=== PATIENT | female | born 1975 | race Caucasian/White ===

== ENCOUNTER 2017-11-01 15:25 | Inpatient (IN) | payer OTHER, MEDICAID ==
[~2017-11-01] VITALS: Ht 162.6 cm; Wt 64.4 kg
[~2017-11-01 15:25] MED LIST: AMOXICILLIN 50500 MG PO; AUGMENTIN 875875 MG PO; CEFTIN 250 MG250 MG PO; CIPRO250 M1 PO; CIPRO250 MG PO; CIPROFLOXACIN500 M1 PO; COMPAZINE10 MG PO; DILAUDID 2 MG TA2 MG PO; DILAUDID 4 MG TA4 M1 PO; DILAUDID2 M1 PO; DOXYCYCLINE 10100 MG PO; HYDROCODONE-AP1 EAC6 PO; KEFLEX500 MG PO; KLOR-CON 1010 MEQ PO; LASIX 20 MG TAB20 MG PO; LEVAQUIN 500 M500 M2 PO; LEVAQUIN 750 M750 MG PO; LISINOPRIL20 MG PO; MACROBID 100 M100 M1 PO; MUCINEX TA600 MG/TA2 PO; NOHOMEMEDICATIONS; ONDANSETRON HCL4 M2 PO; OXYCODONE HCL 55 MG PO; OXYCODONE HCL5 MG PO; OXYCODONE-ACET1 EACH PO; OXYCONTIN10 M1 PO; PENICILLIN V P500 MG PO; PERCOCET 10-321 EACH PO; PERCOCET 5-3251 EACH PO; PERCOCET PO; PHENERGAN 25 MG25 M1 PO; PHENERGAN 25 MG25 MG PO; POTASSIUM20 PO; PREDNISONE 10 M10 MG PO; PROAIR HFA8.5 GM INH; PYRIDIUM200 MG PO; REMERON15 MG PO; SINGULAIR 10 MG10 M1 PO; TRANSDERM-SCO1 PATC1 TD; TYLENOL325 MG PO; ZOFRAN ODT4 M1 PO; ZOFRAN ODT4 MG PO; ZOFRAN4 MG PO
[2017-11-01 15:52] VITALS: BP 127/82
[2017-11-01] MEDS ORDERED: ZYVOX600 MG/300 IV (15:58)
[2017-11-01] MEDS ORDERED: XARELTO20 MG PO (15:58)
[2017-11-01] MEDS ORDERED: PROBIOTIC1 EAC1 PO (15:59)
[2017-11-01] MEDS ORDERED: MYCAMINE100 MG IV (16:00)
[2017-11-01] MEDS ORDERED: DILAUDID 2 MG TA2 MG PO (16:01)
[2017-11-01] MEDS ORDERED: VANCOMYCIN HCL125 MG PO (16:01)
[2017-11-01] MEDS ORDERED: ONDANSETRON HCL4 M2 PO (16:01)
[2017-11-01 17:35] LABS: ABSOLUTE LYMPHOCYTES 1.3 thou/uL (0.8-5.3); ABSOLUTE MONOCYTES 0.4 thou/uL (0.0-1.2); ABSOLUTE NEUTROPHILS 3.5 thou/uL (1.6-8.1); BASOPHILS 0.7 %; EOSINOPHILS 0.8 %; HEMATOCRIT 27.3 % (37.0-47.0); HEMOGLOBIN 8.7 gm/dL (12.0-15.0); MCH 26.1 pg (26.0-34.0); MCHC 31.9 g/dL (28.0-37.0); MCV 81.8 fL (80.0-100.0); MONOCYTES 7.8 %; MPV 6.5 fl. (7.2-11.1); NUCLEATED RBCS 0 /100WBC; PLATELET COUNT* 234 thou/uL (150-400); POLYS 65.7 %; RBC 3.34 mil/uL (4.20-5.00); RDW-CV 30.6 % (10.5-14.5); WBC 5.3 thou/uL (4.0-11.0)
[2017-11-01 17:44] LABS: ANION GAP 5 mmol/L (7-16); BUN 18 mg/dL (7-18); CALCIUM 8.7 mg/dL (8.5-10.1); CHLORIDE 104 mmol/L (98-107); CO2 28 mmol/L (21-32); CREATININE 0.7 mg/dL (0.6-1.3); GLUCOSE 103 mg/dL (70-99); POTASSIUM 3.7 mmol/L (3.5-5.1); SODIUM 137 mmol/L (136-145)
[2017-11-01 17:44] LABS: URINE BILIRUBIN NEGATIVE (Negative); URINE BLOOD 1+ (Negative); URINE CLARITY CLEAR; URINE COLOR YELLOW; URINE GLUCOSE-RANDOM NEGATIVE (Negative); URINE KETONES NEGATIVE (Negative); URINE LEUKOCYTES NEGATIVE (Negative); URINE NITRITE NEGATIVE (Negative); URINE PROTEIN TRACE (Negative); URINE SPECIFIC GRAVITY 1.015 (1.005-1.030); URINE UROBILINOGEN 0.2 E.U./dl (0.2-1.0)
[2017-11-01 17:51] LABS: ALBUMIN 3.5 g/dL (3.4-5.0); ALKALINE PHOSPHATASE 68 U/L (46-116); LIPASE 75 U/L (73-393); SGOT 17 U/L (15-37); SGPT 17 U/L (30-65); TOTAL BILIRUBIN 0.3 mg/dL (<0.1-1.0); TOTAL PROTEIN 7.8 g/dL (6.4-8.2); TROPONIN-I LEVEL <0.06 ng/mL (<0.06)
[2017-11-01 18:02] LABS: INR 1.3; PROTIME 12.8 Seconds (9.20-11.50)
[2017-11-01 18:08] LABS: BACTERIA 1-9 Few /HPF (None Seen); CASTS None Seen /LPF (None Seen); CRYSTALS None Seen /LPF (None Seen); SQUAMOUS 0-3 Few /LPF (0-3); URINE RBC 3-10 Few /HPF (0-2); URINE WBC 0-5 Rare /HPF (0-5)
[2017-11-01 18:16] LABS: APTT 35.9 Seconds (25.0-31.3)
--- NOTE | 2017-11-01 18:20 | NUR ---
CT ABD/PEL W COMPLEATED PT RETURNED TO ED
[2017-11-01 18:25] LABS: ANISOCYTOSIS 3+; HYPOCHROMASIA 1+; TEARDROPS 1+
[2017-11-01 18:26] LABS: MACROCYTES 2+; MICROCYTES 1+; TARGET CELLS 1+
[2017-11-01 18:27] LABS: POIKILOCYTOSIS 1+
[2017-11-01 18:28] LABS: SCHISTOCYTES Occasional
[2017-11-01 18:29] LABS: PLATELET ESTIMATE ADEQUATE; POLYCHROMASIA Occasional
[2017-11-01 21:10] VITALS: BP 115/51
[2017-11-01 21:18] VITALS: BP 116/77
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
[2017-11-02 04:00] VITALS: BP 92/50
[2017-11-02 05:26] LABS: HEMOGLOBIN 7.9 gm/dL (12.0-15.0); MCH 26.5 pg (26.0-34.0); MCHC 31.7 g/dL (28.0-37.0); MCV 83.8 fL (80.0-100.0); MPV 6.2 fl. (7.2-11.1); RBC 2.99 mil/uL (4.20-5.00); RDW-CV 30.8 % (10.5-14.5); WBC 4.6 thou/uL (4.0-11.0)
[2017-11-02 05:36] LABS: CREATININE 0.7 mg/dL (0.6-1.3); POTASSIUM 3.8 mmol/L (3.5-5.1)
[2017-11-02 08:00] VITALS: BP 130/61
--- NOTE | 2017-11-02 10:38 | NUR ---
PER DR MCKEON ORDERS-CALL PT PHARMACY TO GET DILAUDID STRENGTH AND DATE OF LAST REFILL. [facility] CALLED AND LAST REFILL WAS PLACED ON 01/22/17 OF DILAUDID 4MG- 1 TAB EVERY 8 HOURS PRN SEVERE PAIN, 28 TABS. ADDITIONAL CHECK COMPLETED BY PHARMACY AND NOTED THAT PT HAD DILAUDID SCRIPT FILLED AT [facility] ON 10/29/17- 4MG- 2 TABS QID- 20 TABS TOTAL.
--- NOTE | 2017-11-02 11:16 | NUR ---
ASSUMED CARE OF PT AT 0730. PT SITTING IN BED. PT A&0X4. PT COMPLAINS OF 9/10 ABDOMINAL AND BACK PAIN. REQUESTING PAIN MEDICATION. PT EDUCATED THAT SHE IS NOT ABLE TO HAVE PAIN MEDICATION UNTIL 0830. PT NPO FOR GI CONSULT. PT IN CONTACT ISOLATION FOR VRE AND PENDING CDIFF. PT MEDICAL SURGICAL STATUS. ON RA SAT 98%. DENIES ANY SHORTNESS OF BREATH. PT HAVING BLOODY STOOLS. STATES SHE HAD 3 OVER NIGHT AND 1 THIS MORNING SO FAR. PT UP AD KIRA IN ROOM. PT GOAL FOR TODAY IS TO MONITOR HGB, PAIN MGMT AND GI CONSULT. AM ASSESSMENT CHARTED. MEDICATIONS PER NOV. PT REPOSITIONS SELF. HOURLY ROUNDING OBSERVED. BED IN LOW POSITION. CALL LIGHT WITHIN REACH. WILL CONTINUE PLAN OF CARE.
--- NOTE | 2017-11-02 13:54 | NUR ---
MET WITH PT TO DISCUSS HOME SITUATION/DC PLANNING. PT LIVES [place] HER MOTHER AND DTR [place]. SHE STATES SHE IS INDEPENDENT AND ACTIVE, USES NO EQUIPMENT. NOT HAD HH BEFORE. PT DENIES HAVING A PCP AND STATES DOESN'T WANT ASSIST FINDING ONE. PER OLD RECORD, WAS TO F/U WITH DR CAN, WHEN QUESTIONED, SHE STATED THAT THE ' WASN'T TAKING NEW PTS.' PT DENIES ANY DC NEEDS. UP IN ROOM, INDEPENDENT. WILL FOLLOW
[2017-11-02 14:49] LABS: HEMATOCRIT 26.2 % (37.0-47.0); HEMOGLOBIN 8.3 gm/dL (12.0-15.0)
--- NOTE | 2017-11-02 15:52 | EKG ---
[place] [address] ELECTROCARDIOGRAM REPORT Name: ZACHARY DUMONT Room: [place] [address] ADM IN .R.#: [id number] Admission: 11/01/17 Attend Phys: Humaira Ball MD Discharge: Date of : 75 Report #: [id number] THIS REPORT FOR: //name// [facility] ED Test Date: 2017-11-01 Test Time: 17:11:35 Pat Name: ZACHARYHER DUMONT Department: Room: [facility] Gender: F Guest Experience Representative: Efren HUDSON : 1975 Requested By: Becky Del Valle Order Number: [id number] : Faraz Ramirez Measurements Intervals [place] Rate: 92 P: 61 [place]: 186 QRS: 43 QRSD: 81 T: 67 QT: 364 QTc: 451 Interpretive Statements Sinus rhythm Compared to ECG 11/01/2016 15:03:29 Sinus tachycardia no longer present Electronically Signed On 11-02-2017 15:52:03 ACID CONDITIONER by Faraz Ramirez [email or web address] <ELECTRONICALLY SIGNED> By: Faraz Ramirez MD, [facility] 11/02/17 1552 171 10 Faraz Ramirez MD, FAC /EPI
[2017-11-02 16:00] VITALS: BP 11/79
--- NOTE | 2017-11-02 17:20 | NUR ---
NO ACUTE CHANGES THROUGHOUT SHIFT. REFER TO CHARTING. PT COMPLAINED OF PAIN TO ABDOMEN AND LOWER BACK. TREATED WITH PRN DILAUDID Q6H PRN WITH PARTIAL RELIEF. IVF DISCONTINUED. HGB CHECK AT 1400 BACK AT 8.3. GI HERE TO SEE PT AND DISMISSED PT FROM PRACTICE IN 2016 AND STATED IF PT NEEDS GI INTERVENTION- WILL NEED TRANSFER. PT DIET RESTARTED AND PT TOLERATING WELL. PT STATES SHE HAS HAD A COUPLE LOOSE BLOODY STOOLS THIS AFTERNOON. HGB STABLE. PT CONTINUES TO BE MED SURG STATUS. ON RA SAT UPPER 90'S. DENIES ANY SHORTNESS OF BREATH. PT CHECKED FOR POCKETING MEDS WHEN ADMINISTERING PAIN MEDICATIONS. IN CONTACT ISOLATION FOR VRE AND TO RULE OUT CDIFF. PT UP AD KIRA IN ROOM. PT AMBULATES IN HALLWAY. MEDICATIONS PER NOV. PT REPOSITIONS SELF. HOURLY ROUNDING OBSERVED. BED IN LOW POSITION. CALL LIGHT WITHIN REACH. WILL CONTINUE PLAN OF CARE.
[2017-11-02 20:37] VITALS: BP 122/78
[2017-11-02 23:26] LABS: HEMOGLOBIN 8.3 gm/dL (12.0-15.0)
[2017-11-02 23:57] VITALS: BP 111/73
--- NOTE | 2017-11-03 06:57 | NUR ---
Pt states she takes Hydromorphone q4h prn at home rather than q6h. States she will inquire about adjusting frequency with physician today. Informed patient that dosing and frequency had been double-checked with her pharmacy yesterday and the prescription was written for q6h prn. Otherwise no complaints. VSS. States no GI physician saw her yesterday (per consult order). Will continue to monitor.
[2017-11-03 08:00] VITALS: BP 121/67
[2017-11-03 11:35] VITALS: BP 127/83
[2017-11-03 15:58] VITALS: BP 132/88
--- NOTE | 2017-11-03 17:35 | NUR ---
ASSUMED CARE OF JORGE AT THIS TIME. PATIENT SETTLED TO ROOM. PATIENT DENIES ANY NEEDS. CALL LIGHT WITHIN REACH. WILL CONTINUE TO MONITOR.
[2017-11-03 17:40] VITALS: BP 118/78
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
[2017-11-04] VITALS: BP 112/69
[2017-11-04 05:14] LABS: HEMATOCRIT 31.3 % (37.0-47.0); HEMOGLOBIN 9.6 gm/dL (12.0-15.0)
[2017-11-04 07:55] VITALS: BP 119/82
[2017-11-04 10:06] VITALS: BP 112/69
--- NOTE | 2017-11-04 10:30 | NUR ---
PATIENT DISCONNECTED IV LINE AFTER SPEAKING WITH DR MCKEON ABOUT DISCHARGE. PATIENT WALKING HALLS AWAITING DISCHARGE PAPERS. ZYVOX WAS NOT COMPLETED.
--- NOTE | 2017-11-04 11:10 | NUR ---
PATIENT DISCHARGED TO HOME. DISCHARGE PAPERS REVIEWED AND SIGNED. NO NEW PRESCRIPTIONS. PATIENT TO CONTINUE PREVIOUSLY ORDERED MEDICATIONS AND FOLLOW-UP WITH DR MAGUIRE. PATIENT STATES SHE HAS ALL NEEDED SUPPLIES AND TRAINING FOR IV ANTIBIOTICS. PATIENT HAS TICC LINE IN PLACE. CM DENIES NEED TO SET UP HOME HEALTH IT IS ALREADY SET UP AT HOME. PATIENT DENIES ANY FURTHER NEEDS. PATIENT TAKEN AMBULATORY TO ER WAITING ROOM. DAUGHTER TRANSPORTING HOME.
--- NOTE | 2017-11-04 11:14 | NUR ---
Pt to dc home today. No needs expressed by pt according to pt nurse. SW was also informed by pt nurse that pt said she has all of her meds and that pt did not want HH arranged...previous CM notes that pt does not have history of HH services. SW to fax results of cultures to [facility] ID Dr. Weathers in 3 to 4 days.
--- NOTE | 2017-11-06 20:16 | EKG ---
[place] [address] ELECTROCARDIOGRAM REPORT Name: ZACHARY DUMONT Room: [address]#: [id number] Admission: 11/01/17 Attend Phys: Humaira Ball MD Discharge: 11/04/17 Date of : 75 Report #: [id number] THIS REPORT FOR: //name// [facility] ED Test Date: 2017-11-06 Test Time: 04:47:03 Pat Name: ZACHARY DUMONT Department: Room: Gender: Analyst: JUNE Schwartz : 1975 Requested By: Zoey Taylor Order Number: [id number] MD: Avery Richards Measurements Intervals [place] Rate: 105 P: 71 [place]: 165 QRS: 72 QRSD: 82 T: 68 QT: 354 QTc: 468 Interpretive Statements Sinus tachycardia Compared to ECG 11/01/2017 17:11:35 Sinus rhythm no longer present Electronically Signed On 11-06-2017 20:15:51 BUTT SAWYER by Avery Richards [email or web address] <ELECTRONICALLY SIGNED> By: Avery Richards MD, [facility] 11/06/172014 [facility]7 0447 Avery Richards MD, FACC /EPI
== END 2017-11-04 11:10 | disposition home or self-care (01) | DRG 314 ==
LOC: M.ERS 15:25 → M.2W 19:43 → M.TBA-ER 19:43 → M.3W 19:43 → M.2W 21:10 → M.3W 11-03 17:25
PROVIDERS: Internal Medicine; Nurse Practitioner Family; ADMIT Internal Medicine
PROC: 02HV33Z Insertion of Infusion Device into Superior Vena Cava, Percutaneous Approach (ICD-10-PCS; principal; 2017-11-01)
DX: T80.218A Other infection due to central venous catheter, initial encounter (principal); K75.0 Abscess of liver; A41.50 Gram-negative sepsis, unspecified; D62 Acute posthemorrhagic anemia; K92.2 Gastrointestinal hemorrhage, unspecified; F11.20 Opioid dependence, uncomplicated; K64.9 Unspecified hemorrhoids; F17.210 Nicotine dependence, cigarettes, uncomplicated; K64.8 Other hemorrhoids; Y83.8 Other surgical procedures as the cause of abnormal reaction of the patient, or of later complication, without mention of misadventure at the time of the procedure; Z98.1 Arthrodesis status; Z90.49 Acquired absence of other specified parts of digestive tract; Z90.710 Acquired absence of both cervix and uterus; Z86.711 Personal history of pulmonary embolism; Z88.6 Allergy status to analgesic agent; Z88.1 Allergy status to other antibiotic agents; Z88.5 Allergy status to narcotic agent; Z88.8 Allergy status to other drugs, medicaments and biological substances; Z79.01 Long term (current) use of anticoagulants; Z86.718 Personal history of other venous thrombosis and embolism; Z82.49 Family history of ischemic heart disease and other diseases of the circulatory system; Z83.3 Family history of diabetes mellitus; Y92.89 Other specified places as the place of occurrence of the external cause

== ENCOUNTER 2017-11-06 04:30 | Emergency (ER) | payer OTHER, MEDICAID ==
[~2017-11-06] VITALS: Ht 162.6 cm; Wt 61.2 kg
[~2017-11-06 04:30] MED LIST changes: +MYCAMINE100 MG IV; +PROBIOTIC1 EAC1 PO; +VANCOMYCIN HCL125 MG PO; +XARELTO20 MG PO; +ZYVOX600 MG/300 IV
[2017-11-06] MEDS ORDERED: MAXIPIME 1 GM/D51 G1 (04:45)
[2017-11-06 05:36] LABS: ABSOLUTE EOSINOPHILS 0.1 thou/uL (0.0-0.7); ABSOLUTE LYMPHOCYTES 1.2 thou/uL (0.8-5.3); ABSOLUTE MONOCYTES 0.4 thou/uL (0.0-1.2); BASOPHILS 0.4 %; EOSINOPHILS 0.9 %; HEMOGLOBIN 9.3 gm/dL (12.0-15.0); LYMPHOCYTES 18.3 %; MCH 26.8 pg (26.0-34.0); MCHC 32.2 g/dL (28.0-37.0); MCV 83.3 fL (80.0-100.0); MONOCYTES 5.5 %; MPV 6.7 fl. (7.2-11.1); NUCLEATED RBCS 0 /100WBC; PLATELET COUNT* 359 thou/uL (150-400); POLYS 74.9 %; RBC 3.48 mil/uL (4.20-5.00); RDW-CV 30.9 % (10.5-14.5); WBC 6.6 thou/uL (4.0-11.0)
[2017-11-06 05:45] LABS: CALCIUM 8.8 mg/dL (8.5-10.1); CREATININE 0.6 mg/dL (0.6-1.3); POTASSIUM 3.6 mmol/L (3.5-5.1)
[2017-11-06 05:47] VITALS: BP 102/58
[2017-11-06 07:46] LABS: PLATELET ESTIMATE ADEQUATE
[2017-11-06 07:47] LABS: ANISOCYTOSIS 1+; HYPOCHROMASIA 1+; OVALOCYTES 1+; POIKILOCYTOSIS 1+; TEARDROPS Occasional
== END 2017-11-06 05:52 | disposition home or self-care (01) ==
LOC: M.ERS 04:30
PROVIDERS: Emergency Medicine
DX: R10.30 Lower abdominal pain, unspecified (principal); Z76.5 Malingerer [conscious simulation]; M79.7 Fibromyalgia; F17.210 Nicotine dependence, cigarettes, uncomplicated; Z87.442 Personal history of urinary calculi; Z90.49 Acquired absence of other specified parts of digestive tract; Z90.710 Acquired absence of both cervix and uterus; Z86.711 Personal history of pulmonary embolism; Z88.8 Allergy status to other drugs, medicaments and biological substances; Z88.1 Allergy status to other antibiotic agents; Z88.5 Allergy status to narcotic agent; Z88.6 Allergy status to analgesic agent

== ENCOUNTER 2018-04-06 08:10 | Emergency (ER) | payer OTHER, MEDICAID ==
[~2018-04-06] VITALS: Ht 162.6 cm; Wt 67.1 kg
[~2018-04-06 08:10] MED LIST changes: +MAXIPIME 1 GM/D51 G1
[2018-04-06 08:52] LABS: ABSOLUTE LYMPHOCYTES 1.9 thou/uL (0.8-5.3); ABSOLUTE MONOCYTES 0.4 thou/uL (0.0-1.2); ABSOLUTE NEUTROPHILS 3.9 thou/uL (1.6-8.1); BASOPHILS 0.4 %; EOSINOPHILS 0.6 %; HEMATOCRIT 41.9 % (37.0-47.0); HEMOGLOBIN 13.3 gm/dL (12.0-15.0); LYMPHOCYTES 30.3 %; MCH 25.1 pg (26.0-34.0); MCHC 31.7 g/dL (28.0-37.0); MCV 79.2 fL (80.0-100.0); MONOCYTES 5.9 %; MPV 7.2 fl. (7.2-11.1); NUCLEATED RBCS 0 /100WBC; PLATELET COUNT* 395 thou/uL (150-400); POLYS 62.8 %; RBC 5.29 mil/uL (4.20-5.00); RDW-CV 25.7 % (10.5-14.5); WBC 6.1 thou/uL (4.0-11.0)
[2018-04-06 09:07] LABS: CALCIUM 9.3 mg/dL (8.5-10.1); CREATININE 0.6 mg/dL (0.6-1.3); POTASSIUM 4.1 mmol/L (3.5-5.1)
[2018-04-06 09:11] LABS: ALBUMIN 3.8 g/dL (3.4-5.0); TOTAL BILIRUBIN 0.3 mg/dL (<0.1-1.0); TOTAL PROTEIN 8.4 g/dL (6.4-8.2)
[2018-04-06 09:33] LABS: ANISOCYTOSIS 2+; HYPOCHROMASIA 2+; PLATELET ESTIMATE ADEQUATE
[2018-04-06 09:34] LABS: POLYCHROMASIA 1+
[2018-04-06 10:46] VITALS: BP 124/71
--- NOTE | 2018-04-06 17:55 | EKG ---
[place] [address] ELECTROCARDIOGRAM REPORT Name: ZACHARY DUMONT Room: [facility]#: [id number] Admission: 04/06/18 Attend Phys: Discharge: 04/06/18 Date of : 75 Report #: [id number] THIS REPORT FOR: //name// [facility] ED Test Date: 2018-04-06 Test Time: 08:43:42 Pat Name: ZACHARYHER DUMONT Department: Room: Gender: F Machine Clothing Worker: Efren SHIPLEY : 1975 Requested By: Jaden Yang Order Number: [id number] MD: Avery Richards Measurements Intervals [place] Rate: 82 P: 56 SC: 159 QRS: 51 QRSD: 82 T: 62 QT: 390 QTc: 456 Interpretive Statements Sinus rhythm Compared to ECG 11/06/2017 04:47:03 Sinus tachycardia no longer present Electronically Signed On 04-06-2018 17:54:42 CDT by Avery Richards [email or web address] <ELECTRONICALLY SIGNED> By: Avery Richards MD, [facility] 04/06/18 1754 0843 2 Avery Richards MD, FACC /EPI
== END 2018-04-06 10:48 | disposition home or self-care (01) ==
LOC: M.ERS 08:10
PROVIDERS: Family Medicine
DX: R10.84 Generalized abdominal pain (principal); R11.2 Nausea with vomiting, unspecified; Z76.5 Malingerer [conscious simulation]; M79.7 Fibromyalgia; F17.210 Nicotine dependence, cigarettes, uncomplicated; Z88.6 Allergy status to analgesic agent; Z88.1 Allergy status to other antibiotic agents; Z88.8 Allergy status to other drugs, medicaments and biological substances; Z87.442 Personal history of urinary calculi; Z90.710 Acquired absence of both cervix and uterus; Z90.49 Acquired absence of other specified parts of digestive tract

== ENCOUNTER 2018-12-16 18:23 | Emergency (ER) | payer OTHER, MEDICAID ==
[~2018-12-16] VITALS: Ht 162.6 cm; Wt 67.1 kg
[2018-12-16 18:45] LABS: URINE BILIRUBIN NEGATIVE (Negative); URINE BLOOD NEGATIVE (Negative); URINE CLARITY CLEAR; URINE COLOR YELLOW; URINE GLUCOSE-RANDOM NEGATIVE (Negative); URINE KETONES NEGATIVE (Negative); URINE LEUKOCYTES NEGATIVE (Negative); URINE NITRITE NEGATIVE (Negative); URINE PROTEIN TRACE (Negative); URINE UROBILINOGEN 0.2 E.U./dl (0.2-1.0)
[2018-12-16 19:28] LABS: HEMATOCRIT 40.6 % (37.0-47.0); HEMOGLOBIN 13.5 gm/dL (12.0-15.0); MCH 30.5 pg (26.0-34.0); MCHC 33.3 g/dL (28.0-37.0); MCV 91.7 fL (80.0-100.0); MPV 7.4 fl. (7.2-11.1); NUCLEATED RBCS 0 /100WBC; PLATELET COUNT* 285 thou/uL (150-400); RBC 4.43 mil/uL (4.20-5.00); WBC 5.1 thou/uL (4.0-11.0)
[2018-12-16 19:38] LABS: ALBUMIN 3.5 g/dL (3.4-5.0); CALCIUM 9.1 mg/dL (8.5-10.1); CREATININE 0.6 mg/dL (0.6-1.3); POTASSIUM 3.1 mmol/L (3.5-5.1); TOTAL BILIRUBIN 0.3 mg/dL (<0.1-1.0)
[2018-12-16 19:46] LABS: ABSOLUTE LYMPHOCYTES 1.8 thou/uL (0.8-5.3); ABSOLUTE MONOCYTES 0.1 thou/uL (0.0-1.2); ABSOLUTE NEUTROPHILS 3.2 thou/uL (1.6-8.1)
[2018-12-16 19:47] LABS: ATYPICAL LYMPHS 10 %; PLATELET ESTIMATE ADEQUATE
[2018-12-16] MEDS ORDERED: LEVAQUIN 750 M750 MG PO (22:44)
[2018-12-16] MEDS ORDERED: PHENERGAN 25 MG25 M1 PO (22:44)
[2018-12-16] MEDS ORDERED: VENTOLIN HFA 1818 GM INH (22:44)
[2018-12-16 23:10] VITALS: BP 132/66
== END 2018-12-16 23:29 | disposition home or self-care (01) ==
LOC: M.ERS 18:23
PROVIDERS: Physician Assistant
DX: J18.9 Pneumonia, unspecified organism (principal); R74.0 Nonspecific elevation of levels of transaminase and lactic acid dehydrogenase [LDH]; M79.7 Fibromyalgia; G89.29 Other chronic pain; F17.210 Nicotine dependence, cigarettes, uncomplicated; Z88.1 Allergy status to other antibiotic agents; Z88.6 Allergy status to analgesic agent; Z88.8 Allergy status to other drugs, medicaments and biological substances; Z88.5 Allergy status to narcotic agent; Z87.442 Personal history of urinary calculi; Z90.49 Acquired absence of other specified parts of digestive tract; Z90.710 Acquired absence of both cervix and uterus; Z86.711 Personal history of pulmonary embolism

== ENCOUNTER 2019-01-08 18:24 | Emergency (ER) | payer OTHER, MEDICAID ==
[~2019-01-08] VITALS: Ht 157.5 cm; Wt 63.7 kg
[~2019-01-08 18:24] MED LIST changes: +VENTOLIN HFA 1818 GM INH
[2019-01-08] MEDS ORDERED: PROTONIX40 M1 PO (18:35)
[2019-01-08] MEDS ORDERED: AMBIEN 5 MG TABL5 M1 PO (18:36)
[2019-01-08 19:34] LABS: INFLUENZA A ANTIGEN None Detected (None Detect); INFLUENZA B ANTIGEN None Detected (None Detect)
[2019-01-08 19:47] LABS: ABSOLUTE EOSINOPHILS 0.1 thou/uL (0.0-0.7); ABSOLUTE LYMPHOCYTES 2.9 thou/uL (0.8-5.3); ABSOLUTE MONOCYTES 0.6 thou/uL (0.0-1.2); ABSOLUTE NEUTROPHILS 4.2 thou/uL (1.6-8.1); BASOPHILS 0.6 %; EOSINOPHILS 0.7 %; HEMATOCRIT 48.9 % (37.0-47.0); HEMOGLOBIN 15.8 gm/dL (12.0-15.0); MCH 29.9 pg (26.0-34.0); MCHC 32.2 g/dL (28.0-37.0); MCV 92.8 fL (80.0-100.0); MONOCYTES 7.6 %; MPV 7.2 fl. (7.2-11.1); NUCLEATED RBCS 0 /100WBC; PLATELET COUNT* 257 thou/uL (150-400); POLYS 54.1 %; RBC 5.27 mil/uL (4.20-5.00); WBC 7.8 thou/uL (4.0-11.0)
[2019-01-08 20:17] LABS: URINE BILIRUBIN NEGATIVE (Negative); URINE BLOOD 3+ (Negative); URINE CLARITY CLEAR; URINE COLOR YELLOW; URINE GLUCOSE-RANDOM NEGATIVE (Negative); URINE KETONES NEGATIVE (Negative); URINE LEUKOCYTES-REFLEX NEGATIVE (Negative); URINE NITRITE-REFLEX NEGATIVE (Negative); URINE PROTEIN TRACE (Negative); URINE SPECIFIC GRAVITY 1.015 (1.005-1.030); URINE UROBILINOGEN 0.2 E.U./dl (0.2-1.0)
[2019-01-08 20:22] LABS: SQUAMOUS NONE SEEN /LPF (0-3)
[2019-01-08 20:23] LABS: BACTERIA-REFLEX 1-9 Few /HPF (None Seen); CASTS None Seen /LPF (None Seen); CRYSTALS None Seen /LPF (None Seen); URINE RBC >20 Many /HPF (0-2); URINE WBC-REFLEX 0-5 Rare /HPF (0-5)
[2019-01-08 21:01] LABS: CALCIUM 9.5 mg/dL (8.5-10.1); CREATININE 0.8 mg/dL (0.6-1.3); POTASSIUM 3.8 mmol/L (3.5-5.1); TOTAL BILIRUBIN 0.1 mg/dL (<0.1-1.0)
[2019-01-08 21:02] LABS: ALBUMIN 3.6 g/dL (3.4-5.0)
[2019-01-08 21:17] LABS: AMP/METHAMP Negative (Negative); BARBITURATES Negative (Negative); BENZODIAZEPINES Negative (Negative); COCAINE Negative (Negative); METHADONE Negative (Negative); OPIATES Negative (Negative); PCP Negative (Negative); THC Negative (Negative)
[2019-01-08] MEDS ORDERED: MEDROLDOSEPACK PO (21:21)
[2019-01-08] MEDS ORDERED: PROAIR HFA8.5 GM INH (21:21)
[2019-01-08] MEDS ORDERED: KEFLEX500 M1 PO (21:21)
[2019-01-08 21:33] VITALS: BP 115/71
--- NOTE | 2019-01-09 12:08 | EKG ---
[place] [address] ELECTROCARDIOGRAM REPORT Name: ZACHARY DUMONT Room: [facility]#: [id number] Admission: 01/08/19 Attend Phys: Discharge: 01/08/19 Date of : 75 Report #: [id number] THIS REPORT FOR: //name// [facility] ED Test Date: 2019-01-08 Test Time: 18:56:07 Pat Name: ZACHARY DUMONT Department: Room: Gender: F Resolution Manager: : 1975 Requested By: Lizeth Montoya Order Number: [id number] MD: Avery Richards Measurements Intervals [place] Rate: 89 P: 44 [place]: 205 QRS: 15 QRSD: 81 T: 53 QT: 378 QTc: 460 Interpretive Statements Sinus rhythm Left atrial enlargement, possible Baseline wander in lead(s) II Compared to ECG 04/06/2018 08:43:42 Atrial abnormality now present Electronically Signed On 01-09-2019 12:08:11 CDT by Avery Richards [email or web address] <ELECTRONICALLY SIGNED> By: Avery Richards MD, [facility] 01/09/19 1208 1856 55 Avery Richards MD, FACC /EPI
== END 2019-01-08 21:35 | disposition home or self-care (01) ==
LOC: M.ERS 18:24
PROVIDERS: Physician Assistant
DX: R10.32 Left lower quadrant pain (principal); R31.9 Hematuria, unspecified; M79.7 Fibromyalgia; J44.9 Chronic obstructive pulmonary disease, unspecified; G89.29 Other chronic pain; Z90.49 Acquired absence of other specified parts of digestive tract; Z90.710 Acquired absence of both cervix and uterus; F17.210 Nicotine dependence, cigarettes, uncomplicated; Z88.6 Allergy status to analgesic agent; Z88.8 Allergy status to other drugs, medicaments and biological substances

== ENCOUNTER 2019-02-06 10:45 | Emergency (ER) | payer OTHER, MEDICAID ==
[~2019-02-06] VITALS: Ht 162.6 cm; Wt 62.6 kg
[~2019-02-06 10:45] MED LIST changes: +AMBIEN 5 MG TABL5 M1 PO; +KEFLEX500 M1 PO; +MEDROLDOSEPACK PO; +PROTONIX40 M1 PO
[2019-02-06 11:32] LABS: ABSOLUTE EOSINOPHILS 0.1 thou/uL (0.0-0.7); ABSOLUTE LYMPHOCYTES 3.1 thou/uL (0.8-5.3); EOSINOPHILS 0.8 %; HEMATOCRIT 43.4 % (37.0-47.0); NUCLEATED RBCS 0 /100WBC
[2019-02-06 11:34] LABS: ABSOLUTE MONOCYTES 0.6 thou/uL (0.0-1.2); ABSOLUTE NEUTROPHILS 3.6 thou/uL (1.6-8.1); BASOPHILS 0.6 %; HEMOGLOBIN 14.3 gm/dL (12.0-15.0); LYMPHOCYTES 42.1 %; MCH 29.9 pg (26.0-34.0); MCV 90.7 fL (80.0-100.0); MONOCYTES 7.5 %; MPV 7.7 fl. (7.2-11.1); PLATELET COUNT* 293 thou/uL (150-400); RBC 4.78 mil/uL (4.20-5.00); WBC 7.4 thou/uL (4.0-11.0)
[2019-02-06 11:42] LABS: ANION GAP 13 mmol/L (7-16); BUN 14 mg/dL (7-18); CHLORIDE 110 mmol/L (98-107); CO2 21 mmol/L (21-32); CREATININE 0.8 mg/dL (0.6-1.3); GLUCOSE 102 mg/dL (70-99); POTASSIUM 3.5 mmol/L (3.5-5.1); SODIUM 144 mmol/L (136-145)
[2019-02-06 11:51] LABS: ALBUMIN 3.5 g/dL (3.4-5.0); ALKALINE PHOSPHATASE 73 U/L (46-116); LIPASE 116 U/L (73-393); SGOT 18 U/L (15-37); SGPT 22 U/L (30-65); TOTAL BILIRUBIN 0.3 mg/dL (<0.1-1.0); TOTAL PROTEIN 7.4 g/dL (6.4-8.2); TROPONIN-I LEVEL <0.06 ng/mL (<0.06)
[2019-02-06 13:08] LABS: URINE BILIRUBIN NEGATIVE (Negative); URINE BLOOD NEGATIVE (Negative); URINE CLARITY CLEAR; URINE COLOR YELLOW; URINE GLUCOSE-RANDOM NEGATIVE (Negative); URINE KETONES NEGATIVE (Negative); URINE LEUKOCYTES-REFLEX NEGATIVE (Negative); URINE NITRITE-REFLEX NEGATIVE (Negative); URINE PROTEIN NEGATIVE (Negative); URINE SPECIFIC GRAVITY <= 1.005 (1.005-1.030); URINE UROBILINOGEN 0.2 E.U./dl (0.2-1.0)
[2019-02-06] MEDS ORDERED: HYDROCODONE-AP1 EAC6 PO ×2 (13:26→14:01)
[2019-02-06] MEDS ORDERED: ZOFRAN ODT4 MG DISSOLVE (13:41)
[2019-02-06] MEDS ORDERED: TRAMADOL 50 MG50 MG PO (13:57)
[2019-02-06 14:02] VITALS: BP 121/65
--- NOTE | 2019-02-07 12:44 | EKG ---
[place] [address] ELECTROCARDIOGRAM REPORT Name: ZACHARY DUMONT Room: [facility]#: [id number] Admission: 02/06/19 Attend Phys: Discharge: 02/06/19 Date of : 75 Report #: [id number] THIS REPORT FOR: //name// [facility] ED Test Date: 2019-02-06 Test Time: 10:49:04 Pat Name: ZACHARY DUMONT Department: Room: Gender: F Cafe Operator: Efren HUDSON : 1975 Requested By: Bebo Cowart Order Number: [id number] MD: Faraz Ramirez Measurements Intervals [place] Rate: 93 P: 72 [place]: 150 QRS: 64 QRSD: 89 T: 42 QT: 374 QTc: 466 Interpretive Statements Sinus rhythm Borderline T wave abnormalities Compared to ECG 01/08/2019 18:56:07 T-wave abnormality now present Electronically Signed On 02-07-2019 12:44:00 CDT by Faraz Ramirez [email or web address] <ELECTRONICALLY SIGNED> By: Faraz Ramirez MD, [facility] 02/07/19 1244 1049 1049 Faraz Ramirez MD, FACC /EPI
== END 2019-02-06 14:07 | disposition home or self-care (01) ==
LOC: M.ERS 10:45
PROVIDERS: Emergency Medicine Emergency Medical Services
DX: R07.81 Pleurodynia (principal); R10.30 Lower abdominal pain, unspecified; R07.89 Other chest pain; R11.2 Nausea with vomiting, unspecified; R19.7 Diarrhea, unspecified; J44.9 Chronic obstructive pulmonary disease, unspecified; G89.29 Other chronic pain; M79.7 Fibromyalgia; F17.210 Nicotine dependence, cigarettes, uncomplicated; Z88.1 Allergy status to other antibiotic agents; Z88.6 Allergy status to analgesic agent; Z88.5 Allergy status to narcotic agent; Z88.8 Allergy status to other drugs, medicaments and biological substances; Z87.442 Personal history of urinary calculi; Z90.49 Acquired absence of other specified parts of digestive tract; Z90.710 Acquired absence of both cervix and uterus; Z86.711 Personal history of pulmonary embolism

== ENCOUNTER 2019-05-08 08:31 | Inpatient (IN) | payer OTHER, MEDICAID ==
[~2019-05-08] VITALS: Ht 162.6 cm; Wt 62.6 kg
[~2019-05-08 08:31] MED LIST changes: +TRAMADOL 50 MG50 MG PO; +ZOFRAN ODT4 MG DISSOLVE
[2019-05-08 09:38] LABS: ABSOLUTE EOSINOPHILS 0.1 thou/uL (0.0-0.7); ABSOLUTE LYMPHOCYTES 1.1 thou/uL (0.8-5.3); ABSOLUTE MONOCYTES 0.3 thou/uL (0.0-1.2); BASOPHILS 0.9 %; EOSINOPHILS 1.1 %; HEMATOCRIT 39.3 % (37.0-47.0); HEMOGLOBIN 12.6 gm/dL (12.0-15.0); LYMPHOCYTES 20.1 %; MCH 30.2 pg (26.0-34.0); MCV 94.2 fL (80.0-100.0); MONOCYTES 4.9 %; NUCLEATED RBCS 0 /100WBC; PLATELET COUNT* 421 thou/uL (150-400); RBC 4.17 mil/uL (4.20-5.00); RDW-CV 18.3 % (10.5-14.5); WBC 5.5 thou/uL (4.0-11.0)
[2019-05-08 09:54] LABS: URINE BILIRUBIN NEGATIVE (Negative); URINE BLOOD NEGATIVE (Negative); URINE CLARITY CLEAR; URINE COLOR YELLOW; URINE GLUCOSE-RANDOM NEGATIVE (Negative); URINE KETONES NEGATIVE (Negative); URINE LEUKOCYTES-REFLEX NEGATIVE (Negative); URINE NITRITE-REFLEX NEGATIVE (Negative); URINE PROTEIN NEGATIVE (Negative); URINE UROBILINOGEN 0.2 E.U./dl (0.2-1.0)
[2019-05-08 09:59] LABS: PROTIME 10.6 Seconds (9.20-11.50)
[2019-05-08 10:10] LABS: ANION GAP 11 mmol/L (7-16); BUN 13 mg/dL (7-18); CALCIUM 8.9 mg/dL (8.5-10.1); CHLORIDE 106 mmol/L (98-107); CO2 22 mmol/L (21-32); CREATININE 0.6 mg/dL (0.6-1.3); GLUCOSE 115 mg/dL (70-99); POTASSIUM 4.6 mmol/L (3.5-5.1); SODIUM 139 mmol/L (136-145)
[2019-05-08 10:18] LABS: AMP/METHAMP Negative (Negative); BARBITURATES Negative (Negative); BENZODIAZEPINES Negative (Negative); COCAINE Negative (Negative); METHADONE Negative (Negative); OPIATES POSITIVE (Negative); PCP Negative (Negative); THC Negative (Negative)
[2019-05-08 10:21] LABS: ALBUMIN 3.4 g/dL (3.4-5.0); ALKALINE PHOSPHATASE 68 U/L (46-116); LIPASE 214 U/L (73-393); NT-PRO BRAIN NAT PEPTIDE 579 pg/mL (<300); SGOT 23 U/L (15-37); SGPT 19 U/L (30-65); TOTAL BILIRUBIN 0.3 mg/dL (<0.1-1.0); TOTAL PROTEIN 7.7 g/dL (6.4-8.2); TROPONIN-I LEVEL <0.06 ng/mL (<0.06)
[2019-05-08 11:24] VITALS: BP 120/85
[2019-05-08 11:55] VITALS: BP 119/59
[2019-05-08 16:00] VITALS: BP 108/69
[2019-05-08] MEDS ORDERED: PERCOCET 7.5-31 EACH PO (17:33)
[2019-05-08 19:50] VITALS: BP 118/73
[2019-05-09] VITALS: BP 119/73
[2019-05-09 04:00] VITALS: BP 131/83
[2019-05-09 05:20] LABS: HEMATOCRIT 33.8 % (37.0-47.0); HEMOGLOBIN 10.8 gm/dL (12.0-15.0); MCH 30.2 pg (26.0-34.0); MCHC 32.1 g/dL (28.0-37.0); MCV 94.3 fL (80.0-100.0); MPV 7.1 fl. (7.2-11.1); RBC 3.58 mil/uL (4.20-5.00); RDW-CV 18.4 % (10.5-14.5); WBC 7.5 thou/uL (4.0-11.0)
[2019-05-09 05:49] LABS: ALKALINE PHOSPHATASE 58 U/L (46-116); ANION GAP 8 mmol/L (7-16); BUN 16 mg/dL (7-18); CALCIUM 8.7 mg/dL (8.5-10.1); CHLORIDE 106 mmol/L (98-107); CO2 24 mmol/L (21-32); CREATININE 0.7 mg/dL (0.6-1.3); GLUCOSE 93 mg/dL (70-99); POTASSIUM 4.2 mmol/L (3.5-5.1); SGOT 10 U/L (15-37); SGPT 14 U/L (30-65); SODIUM 138 mmol/L (136-145); TOTAL BILIRUBIN 0.1 mg/dL (<0.1-1.0); TOTAL PROTEIN 6.5 g/dL (6.4-8.2); TROPONIN-I LEVEL <0.06 ng/mL (<0.06)
[2019-05-09 08:00] VITALS: BP 118/69
[2019-05-09 12:06] VITALS: BP 116/89
--- NOTE | 2019-05-09 13:29 | 2DMMODE ---
[place] [address] 2 D/M-MODE ECHOCARDIOGRAM Name: ZACHARY DUMONT Room: [address] IN [facility]#: [id number] Admission: 05/08/19 Attend Phys: Slade Beauchamp Discharge: 05/09/19 Date of : 75 Date of Service: 05/09/19 1328 Report #: [id number] THIS REPORT FOR: //name// APPROVED REPORT Study performed: 05/09/2019 09:50:57 EXAM: Comprehensive 2D, Doppler, and color-flow Echocardiogram Patient Location: In-Patient Room #: 203 Status: routine BSA: 1.63 HR: 88 bpm BP: 118/69 mmHg Rhythm: NSR Other Information Study Quality: Good Indications Syncope 2D Dimensions IVSd: 10.49 (7-11mm) LVOT Diam: 22.46 (18-24mm) LVDd: 43.32 mm PWd: 10.67 (7-11mm) Ascending Ao: 31.91 (22-36mm) LVDs: 23.73 (25-40mm) Aortic Root: 32.63 mm Volumes Left Atrial Volume (Systole) LA ESV Index: 21.50 mL/m2 Aortic Valve AoV Peak Arthur.: 1.34 m/s AO Peak Gr.: 7.16 mmHg LVOT Max P.90 mmHg AO Mean Gr.: 3.98 mmHg LVOT Mean P.52 mmHg LVOT Max V: 1.11 m/s AO V2 VTI: 24.06 cm LVOT Mean V: 0.73 m/s CHUCK (VTI): 3.43 cm2 LVOT V1 VTI: 20.85 cm Mitral Valve E/A Ratio: 1.17 MV Decel. Time: 199.10 ms MV E Max Arthur.: 0.79 m/[place] [address] 2 D/M-MODE ECHOCARDIOGRAM Name: ZACHARY DUMONT Room: [address] IN .R.#: [id number] Admission: 05/08/19 Attend Phys: Slade Beauchamp Discharge: 05/09/19 Date of : 75 Date of Service: 05/09/19 1328 Report #: [id number] MV PHT: 57.74 ms MVA (PHT): 3.81 cm2 TDI E/Lateral E': 4.65 E/Medial E': 7.90 Medial E' Arthur.: 0.10 m/s Lateral E' Arthur.: 0.17 m/s Pulmonary Valve PV Peak Arthur.: 1.03 m/s PV Peak Gr.: 4.22 mmHg Left Ventricle The left ventricle is normal size. There is normal LV segmental wall motion. There is normal left ventricular wall thickness. Left ventricular systolic function is normal. The left ventricular ejection fraction is within the normal range. LVEF is 60-65%. The left ventricular diastolic function is normal. Right Ventricle The right ventricle is normal size. The right ventricular systolic function is normal. Atria The left atrium size is normal. The right atrium size is normal. Aortic Valve The aortic valve is normal in structure. No aortic regurgitation is present. There is no aortic valvular stenosis. Mitral Valve The mitral valve is normal in structure. Trace mitral regurgitation. No evidence of mitral valve stenosis. Tricuspid Valve The tricuspid valve is normal in structure. Unable to assess PA pressure. Trace tricuspid regurgitation. Pulmonic Valve Pulmonic valve is not well visualized. There is no pulmonic valvular regurgitation. Great Vessels The aortic root is normal in size. IVC is normal in size and collapses >50% [place] [address] 2 D/M-MODE ECHOCARDIOGRAM Name: ZACHARY DUMONT Room: [address] IN ..#: [id number] Admission: 05/08/19 Attend Phys: Slade Beauchamp Discharge: 05/09/19 Date of : 75 Date of Service: 05/09/19 1328 Report #: [id number] Pericardium There is no pericardial effusion. <Conclusion> Left ventricular systolic function is normal. The left ventricular ejection fraction is within the normal range. <ELECTRONICALLY SIGNED> By: Zach Bradley MD, [facility] 05/09/19 1328 1328 Zach Bradley MD, [facility] /INF
--- NOTE | 2019-05-09 16:56 | EKG ---
[place] [address] ELECTROCARDIOGRAM REPORT Name: ZACHARY DUMONT Room: [address] IN R.#: [id number] Admission: 05/08/19 Attend Phys: Slade Zaman, Discharge: 05/09/19 Date of : 75 Report #: [id number] THIS REPORT FOR: //name// [facility] ED Test Date: 2019-05-08 Test Time: 09:39:27 Pat Name: ZACHARY DUMONT Department: Room: [facility] Gender: F Form Press Operator: : 1975 Requested By: Leonid Bolanos Order Number: [id number] : Zach Bradley Measurements Intervals [place] Rate: 82 P: 56 [place]: 161 QRS: 36 QRSD: 83 T: 54 QT: 394 QTc: 461 Interpretive Statements Sinus rhythm Probable left atrial enlargement Compared to ECG 02/06/2019 10:49:04 T-wave abnormality no longer present Electronically Signed On 05-09-2019 16:56:33 CDT by Zach Bradley [email or web address] <ELECTRONICALLY SIGNED> By: Zach Bradley MD, [facility] 05/09/19 1656 0939 0939 Zach Bradley MD, [facility] /EPI
--- NOTE | 2019-05-12 10:45 | CON ---
[address] [address] CONSULTATION Name: ZACHARY DUMONT Room: [address] IN M.R.#: [id number] Admission: 05/08/19 Attend Phys: Slade Zaman, Discharge: 05/09/19 Date of : 75 Report #: [id number] THIS REPORT FOR: //name// CC: Physician staff SLADE Zaman DATE OF SERVICE: 05/09/2019 HISTORY OF PRESENT ILLNESS: This is a 43-year-old female patient who was evaluated by me for determining any neurological etiology for the patient's episode of syncope. The patient's history is poorly defined. She apparently had multiple episodes of syncope yesterday. She said it lasted for a few seconds. Though she is out, she has not had any severe injury because of this, but she indicates that this happened when she has a lot of pain. Then, she indicated that this is going on for a long time. She said she was in [facility] and they did MRIs and EEG and they were unremarkable. There is an unstructured episode of syncope where she basically passes out for a few seconds. No tonic-clonic activity has been noticed. REVIEW OF SYSTEMS: Pretty extensive. She said she had spine surgery in the cervical and thoracic spine area. She also said she had some occipital nerve injury. She had followed up with pain management. She has a history of fibromyalgia, kidney stones, renal stent, hysterectomy, appendectomy, and PE. She is allergic to whole lot of medications, but it is not clear what the allergies are from. She indicates she has been anemic for a long time and anemia is the cause of her syncope. She denies any new eye, ENT, respiratory, GI, , constitutional, dermatological, hematological, psychiatric, throat or symptoms associated with present symptomatology. PAST MEDICAL HISTORY: Positive for numerous problems. FAMILY HISTORY: Negative for congenital epilepsy. SOCIAL HISTORY: She does have a history of smoking. PHYSICAL EXAMINATION: Indicate that she is alert and responsive. She can follow simple commands. Her speech, concentration, fund of knowledge and memory is at her baseline according to her. She said she has some memory issues going back to because of some head injury. Cranial nerve examination 2-12 looks mostly unremarkable. She had a surgery on the right knee and allowing for that neuromuscular examination looks unremarkable. There is no meningeal sign. I could not look at the fundus. She is reasonably built individual who does not have any dysmorphic features of eyes, ears and face. There is no thyroid mass. Cardiac examination appears unremarkable. No respiratory [place] [address] CONSULTATION Name: ZACHARY DUMONT JONATHAN Room: [address] IN M.R.#: [id number] Admission: 05/08/19 Attend Phys: Slade Zaman, Discharge: 05/09/19 Date of : 75 Report #: [id number] was noticed. Her blood pressure is 118/69, respiration is 17, pulse is 87, and temperature is 98.7. LABORATORY DATA: Her hemoglobin on admission was 12.6, it is 10.8 now. Her sodium was normal. Her pulses appear to be palpable and she did have a CT scan of the head on admission and that was reviewed and that does not appear to be showing any definite abnormality. She also had a carotid Doppler done, which does not show any hemodynamically significant stenosis. IMPRESSION: Unstructured episode of syncope, which is longstanding. There may be vasovagal spell, but a neurological cause should be excluded. I recommended an MRI of the brain, MRA of the head, and EEG to exclude any other pathology. The patient does not want to do any of those testing. She said she is claustrophobic; although, she had MRIs in the past and she does not want to do MRI. I asked her to get at least an EEG done, but she does not want to do it because she said at one time, it was done in [place] and it was negative. The patient is competent to make her decision and understand the reason for my recommendation and consequences of not following that advice, but she does not want to proceed with any of those. In the circumstances, I will sign off and please call if things changes or she changes her mind. <ELECTRONICALLY SIGNED> By: Lee Hull MD 05/12/19 1045 0950 1203Pnba Hull MD /nt
== END 2019-05-09 12:15 | disposition left against medical advice (07) | DRG 312 ==
LOC: M.ERS 08:31 → M.2W 10:22 → M.TBA-ER 10:22 → M.2W 11:55
PROVIDERS: Emergency Medicine; ADMIT Family Medicine
DX: R55 Syncope and collapse (principal); F11.20 Opioid dependence, uncomplicated; M79.7 Fibromyalgia; J44.9 Chronic obstructive pulmonary disease, unspecified; G89.4 Chronic pain syndrome; Z96.651 Presence of right artificial knee joint; M17.12 Unilateral primary osteoarthritis, left knee; T50.905A Adverse effect of unspecified drugs, medicaments and biological substances, initial encounter; Z53.21 Procedure and treatment not carried out due to patient leaving prior to being seen by health care provider; Z88.1 Allergy status to other antibiotic agents; Z88.8 Allergy status to other drugs, medicaments and biological substances; Z98.1 Arthrodesis status; Z87.442 Personal history of urinary calculi; Z90.89 Acquired absence of other organs; Z90.710 Acquired absence of both cervix and uterus; Z86.711 Personal history of pulmonary embolism; Z82.49 Family history of ischemic heart disease and other diseases of the circulatory system; Z83.3 Family history of diabetes mellitus; Z87.891 Personal history of nicotine dependence; Y92.89 Other specified places as the place of occurrence of the external cause; Z79.899 Other long term (current) drug therapy

== ENCOUNTER 2019-06-03 10:58 | Emergency (ER) | payer OTHER, MEDICAID ==
[~2019-06-03] VITALS: Ht 162.6 cm; Wt 62.6 kg
[~2019-06-03 10:58] MED LIST changes: +PERCOCET 7.5-31 EACH PO
[2019-06-03] MEDS ORDERED: ELIQUIS5 MG PO (11:22)
[2019-06-03 12:43] LABS: ABSOLUTE BASOPHILS 0.1 thou/uL (0.0-0.2); ABSOLUTE EOSINOPHILS 0.1 thou/uL (0.0-0.7); ABSOLUTE LYMPHOCYTES 1.1 thou/uL (0.8-5.3); ABSOLUTE MONOCYTES 0.3 thou/uL (0.0-1.2); ABSOLUTE NEUTROPHILS 3.4 thou/uL (1.6-8.1); BASOPHILS 1.5 %; EOSINOPHILS 1.7 %; HEMATOCRIT 35.6 % (37.0-47.0); HEMOGLOBIN 11.8 gm/dL (12.0-15.0); LYMPHOCYTES 22.2 %; MCH 29.9 pg (26.0-34.0); MCHC 33.2 g/dL (28.0-37.0); MCV 90.1 fL (80.0-100.0); MONOCYTES 6.7 %; MPV 7.9 fl. (7.2-11.1); NUCLEATED RBCS 0 /100WBC; PLATELET COUNT* 316 thou/uL (150-400); POLYS 67.9 %; RBC 3.95 mil/uL (4.20-5.00); RDW-CV 18.4 % (10.5-14.5)
[2019-06-03 12:53] LABS: CALCIUM 8.9 mg/dL (8.5-10.1); CREATININE 0.6 mg/dL (0.6-1.3)
[2019-06-03 12:54] LABS: POTASSIUM 2.9 mmol/L (3.5-5.1)
[2019-06-03 12:57] LABS: ALBUMIN 2.7 g/dL (3.4-5.0); TOTAL BILIRUBIN 0.6 mg/dL (<0.1-1.0); TOTAL PROTEIN 7.1 g/dL (6.4-8.2)
[2019-06-03] MEDS ORDERED: K-DUR 20 MEQ T20 MEQ PO (13:24)
[2019-06-03] MEDS ORDERED: DILAUDID 2 MG TA2 MG PO (13:24)
[2019-06-03 13:46] VITALS: BP 131/83
--- NOTE | 2019-06-04 12:48 | EKG ---
[place] [address] ELECTROCARDIOGRAM REPORT Name: ZACHARY DUMONT Room: [facility]#: [id number] Admission: 06/03/19 Attend Phys: Discharge: 06/03/19 Date of : 75 Report #: [id number] THIS REPORT FOR: //name// [facility] ED Test Date: 2019-06-03 Test Time: 11:48:13 Pat Name: ZACHARY DUMONT Department: Room: Gender: F Shaft Headman: BRIDGER : 1975 Requested By: Leonid Bolanos Order Number: [id number] MD: Faraz Ramirez Measurements Intervals [place] Rate: 79 P: 54 [place]: 160 QRS: 31 QRSD: 84 T: 58 QT: 435 QTc: 499 Interpretive Statements Sinus rhythm Probable left atrial enlargement Borderline prolonged QT interval Compared to ECG 05/08/2019 09:39:27 No significant changes Electronically Signed On 06-04-2019 12:47:54 CDT by Faraz Ramirez [email or web address] <ELECTRONICALLY SIGNED> By: Faraz Ramirez MD, [facility] 06/04/19 1247 1148 1148 Faraz Ramirez MD, FACC /EPI
== END 2019-06-03 13:47 | disposition home or self-care (01) ==
LOC: M.ERS 10:58
PROVIDERS: Emergency Medicine
DX: G89.18 Other acute postprocedural pain (principal); M25.562 Pain in left knee; F17.210 Nicotine dependence, cigarettes, uncomplicated; J44.9 Chronic obstructive pulmonary disease, unspecified; M79.7 Fibromyalgia; Z88.8 Allergy status to other drugs, medicaments and biological substances; Z88.6 Allergy status to analgesic agent; Z88.4 Allergy status to anesthetic agent; Z88.1 Allergy status to other antibiotic agents; Z87.442 Personal history of urinary calculi; Z90.49 Acquired absence of other specified parts of digestive tract; Z90.710 Acquired absence of both cervix and uterus; Z96.652 Presence of left artificial knee joint

== ENCOUNTER 2019-06-05 14:44 | Emergency (ER) | payer OTHER, MEDICAID ==
[~2019-06-05] VITALS: Ht 162.6 cm; Wt 62.6 kg
[~2019-06-05 14:44] MED LIST changes: +ELIQUIS5 MG PO; +K-DUR 20 MEQ T20 MEQ PO
[2019-06-05 14:53] VITALS: BP 137/92
== END 2019-06-05 15:14 | disposition home or self-care (01) ==
LOC: M.ERS 14:44
DX: G89.18 Other acute postprocedural pain (principal); M25.562 Pain in left knee; M79.7 Fibromyalgia; J44.9 Chronic obstructive pulmonary disease, unspecified; Z90.49 Acquired absence of other specified parts of digestive tract; Z90.89 Acquired absence of other organs; Z90.710 Acquired absence of both cervix and uterus; G89.29 Other chronic pain; F17.210 Nicotine dependence, cigarettes, uncomplicated; Z86.711 Personal history of pulmonary embolism; Z87.442 Personal history of urinary calculi; Z88.6 Allergy status to analgesic agent; Z88.5 Allergy status to narcotic agent; Z88.8 Allergy status to other drugs, medicaments and biological substances; Z88.1 Allergy status to other antibiotic agents; Z96.653 Presence of artificial knee joint, bilateral

== ENCOUNTER 2019-08-09 08:20 | Emergency (ER) | payer OTHER, MEDICAID ==
[~2019-08-09] VITALS: Ht 162.6 cm; Wt 72.6 kg
[2019-08-09] MEDS ORDERED: PERCOCET 10-321 EAC1 PO (08:32)
[2019-08-09] MEDS ORDERED: DILAUDID 4 MG TA4 M1 PO (08:33)
[2019-08-09 08:50] VITALS: BP 114/70
== END 2019-08-09 08:50 | disposition left against medical advice (07) ==
LOC: M.ERS 08:20
DX: G89.29 Other chronic pain (principal); R10.9 Unspecified abdominal pain; J44.9 Chronic obstructive pulmonary disease, unspecified; M79.7 Fibromyalgia; F17.210 Nicotine dependence, cigarettes, uncomplicated; Z88.6 Allergy status to analgesic agent; Z88.1 Allergy status to other antibiotic agents; Z88.8 Allergy status to other drugs, medicaments and biological substances; Z88.5 Allergy status to narcotic agent; Z87.442 Personal history of urinary calculi; Z90.49 Acquired absence of other specified parts of digestive tract; Z90.710 Acquired absence of both cervix and uterus; Z86.711 Personal history of pulmonary embolism; Z96.651 Presence of right artificial knee joint

== ENCOUNTER 2019-11-07 07:44 | Emergency (ER) | payer MEDICARE, MEDICAID ==
[~2019-11-07] VITALS: Ht 162.6 cm; Wt 62.5 kg
[~2019-11-07 07:44] MED LIST changes: +PERCOCET 10-321 EAC1 PO
[2019-11-07 08:42] LABS: ABSOLUTE BASOPHILS 0.1 thou/uL (0.0-0.2); ABSOLUTE EOSINOPHILS 0.1 thou/uL (0.0-0.7); ABSOLUTE LYMPHOCYTES 2.2 thou/uL (0.8-5.3); ABSOLUTE MONOCYTES 0.4 thou/uL (0.0-1.2); BASOPHILS 1.2 %; EOSINOPHILS 2.4 %; HEMATOCRIT 42.2 % (37.0-47.0); HEMOGLOBIN 13.7 gm/dL (12.0-15.0); LYMPHOCYTES 45.8 %; MCH 27.4 pg (26.0-34.0); MCHC 32.6 g/dL (28.0-37.0); MCV 84.1 fL (80.0-100.0); MONOCYTES 7.8 %; MPV 6.8 fl. (7.2-11.1); NUCLEATED RBCS 0 /100WBC; PLATELET COUNT* 370 thou/uL (150-400); POLYS 42.8 %; RBC 5.02 mil/uL (4.20-5.00); RDW-CV 21.1 % (10.5-14.5); WBC 4.7 thou/uL (4.0-11.0)
[2019-11-07 08:50] LABS: CREATININE 0.7 mg/dL (0.6-1.3); POTASSIUM 4.5 mmol/L (3.5-5.1)
[2019-11-07 08:54] LABS: ALBUMIN 3.8 g/dL (3.4-5.0); TOTAL BILIRUBIN 0.3 mg/dL (<0.1-1.0)
[2019-11-07 09:58] LABS: URINE BILIRUBIN NEGATIVE (Negative); URINE BLOOD NEGATIVE (Negative); URINE CLARITY CLEAR; URINE COLOR YELLOW; URINE GLUCOSE-RANDOM NEGATIVE (Negative); URINE KETONES NEGATIVE (Negative); URINE LEUKOCYTES-REFLEX NEGATIVE (Negative); URINE NITRITE-REFLEX NEGATIVE (Negative); URINE PROTEIN NEGATIVE (Negative); URINE UROBILINOGEN 0.2 E.U./dl (0.2-1.0)
[2019-11-07 12:22] VITALS: BP 115/75
== END 2019-11-07 12:23 | disposition home or self-care (01) ==
LOC: M.ERS 07:44
PROVIDERS: Personal Emergency Response Attendant
DX: R10.84 Generalized abdominal pain (principal); R11.2 Nausea with vomiting, unspecified; R19.7 Diarrhea, unspecified; M79.7 Fibromyalgia; J44.9 Chronic obstructive pulmonary disease, unspecified; G89.29 Other chronic pain; F17.210 Nicotine dependence, cigarettes, uncomplicated; Z90.49 Acquired absence of other specified parts of digestive tract; Z90.710 Acquired absence of both cervix and uterus; Z86.711 Personal history of pulmonary embolism; Z87.442 Personal history of urinary calculi; Z88.6 Allergy status to analgesic agent; Z88.8 Allergy status to other drugs, medicaments and biological substances; Z88.1 Allergy status to other antibiotic agents; Z88.5 Allergy status to narcotic agent

== ENCOUNTER 2019-11-12 09:30 | Emergency (ER) | payer MEDICARE, MEDICAID ==
[~2019-11-12] VITALS: Ht 162.6 cm; Wt 62.1 kg
[2019-11-12 09:56] VITALS: BP 112/62
== END 2019-11-12 09:56 | disposition left against medical advice (07) ==
LOC: M.ERS 09:30
DX: G89.29 Other chronic pain (principal); R10.10 Upper abdominal pain, unspecified; R11.2 Nausea with vomiting, unspecified; Z76.5 Malingerer [conscious simulation]